=== PATIENT | male | born 1955 | race Caucasian/White ===

== ENCOUNTER → 2018-08-30 | Day surgery (SDC) | payer BC ==
[~2018-08-30] VITALS: Ht 190.5 cm; Wt 84.4 kg
[~2018-08-30] MED LIST: LIDOCAINE/SOD BICARB 8.4% SYR ID ONE; NORMOSOL R SOLN(*) 1000 ML BAG 1,000 ML IV PRN; PROPOFOL EMUL(*) 10MG/ML 20 ML 20 ML ONE
[2018-08-30 10:26] VITALS: BP 117/89
[2018-08-30 13:13] VITALS: BP 126/84
--- NOTE | 2018-08-30 13:20 | Short(Outpt) Discharge Summary ---
Discharge Summary Reason for Hosp/Final Diag: (1) Esophageal foreign body Hospital Course & Plan: pt presented for egd. he tolerated the procedure well. he will be discharged home when criteria met. Departure Discharge to: Home Discharge Instructions Home Meds No Active Prescriptions or Reported Meds Diet: Regular Activity: As Tolerated Special Instructions: call dr. cassidy scanlon ([phone]) if no resolution in 6 wks FRANKIE SCANLON Aug 30, 2018 13:20
[2018-08-30 13:36] VITALS: BP 114/81
[2018-08-30 13:56] VITALS: BP 103/83
[2018-08-30 13:58] VITALS: BP 115/82
== END ==
LOC: OR 00:34
PROVIDERS: ATTEND Surgery
DX: K22.2 Esophageal obstruction (principal)
CPT/HCPCS: 43235; J2704